=== PATIENT | male | born 1970 | race Caucasian/White ===

== ENCOUNTER 2017-09-26 11:09 | Emergency (ER) | payer BC ==
[~2017-09-26] VITALS: Ht 182.9 cm; Wt 108.0 kg
[2017-09-26 13:12] LABS: BASOPHILS 0.5 % (0.0-2.0); EOSINOPHILS 3.2 % (0.0-3.0); HEMATOCRIT 32.8 % (42.0-52.0); HEMOGLOBIN 11.4 gm/dL (14.0-18.0); LYMPHOCYTES 14.9 % (24.0-44.0); MANUAL DIFF NO; MCH 28.7 pg (26.0-34.0); MCHC 34.6 g/dL (28.0-37.0); MCV 82.8 fL (80.0-100.0); PLATELET COUNT 264 thou/uL (150-400); POLYS 72.4 % (36.0-66.0); RBC 3.96 mil/uL (4.50-6.00); RDW 12.6 % (10.5-14.5); WBC 8.2 thou/uL (4.0-11.0)
[2017-09-26 13:19] LABS: CALCIUM 9.2 mg/dL (8.5-10.1); CREATININE 1.2 mg/dL (0.7-1.3); POTASSIUM 4.3 mmol/L (3.5-5.1)
[2017-09-26 14:20] VITALS: BP 153/88
== END 2017-09-26 13:41 | disposition home or self-care (01) ==
LOC: ER 11:09
PROVIDERS: Emergency Medicine
DX: L03.116 Cellulitis of left lower limb (principal); S93.305A Unspecified dislocation of left foot, initial encounter; Z88.5 Allergy status to narcotic agent; E11.9 Type 2 diabetes mellitus without complications; X58.XXXA Exposure to other specified factors, initial encounter; Y93.89 Activity, other specified; Y92.89 Other specified places as the place of occurrence of the external cause; Y99.8 Other external cause status